=== PATIENT | female | born 1975 | race Asian ===

== ENCOUNTER 2022-04-26 19:15 | Emergency (ER) | payer MEDICAID ==
[~2022-04-26] VITALS: Ht 152.4 cm; Wt 54.5 kg
--- NOTE | 2022-04-26 19:30 | NUR ---
Advised MD and charge machine operator of pt's condition, no orders at this time
--- NOTE | 2022-04-27 00:02 | NUR ---
advised new on shift MD of pt's representation, verbal order for head CT at this time
[2022-04-27 05:11] VITALS: BP 130/88
== END 2022-04-27 05:12 | disposition home or self-care (01) ==
LOC: ER 19:17
DX: R20.0 Anesthesia of skin (principal)
CPT/HCPCS: 70450; 99284